=== PATIENT | male | born 1980 | race Caucasian/White ===

== ENCOUNTER 2021-04-13 14:56 | Emergency (ER) | payer OTHER ==
[~2021-04-13] VITALS: Ht 167.6 cm; Wt 63.5 kg
--- NOTE | 2021-04-13 15:04 | NUR ---
Pt to triage room for assessment.
[2021-04-13 15:05] VITALS: BP_SYST 154
--- NOTE | 2021-04-13 15:05 | NUR ---
Pt AAO and ambulatory reporting bilateral blisters on the bottom of feet X 3 days. Pt reports pain started 3 days ago. Pt stated that this has happened in the past and they usually dry out. Pt reports 10/10 pain currently. Pt has no prior medical history.
--- NOTE | 2021-04-13 15:15 | NUR ---
Dr. So to triage to assess.
--- NOTE | 2021-04-13 15:20 | NUR ---
Dr. So lanced blisters in triage. Pt tolerated well.
[2021-04-13] MEDS ORDERED: BACITRACIN 1 GM OINT TP ONE ×2 (15:24→15:30)
[2021-04-13] MEDS ORDERED: CEPH250C PO (15:25)
[2021-04-13] MEDS ORDERED: IBUP-1971 PO (15:25)
[2021-04-13 15:35] VITALS: BP_SYST 154
--- NOTE | 2021-04-13 15:35 | NUR ---
Patient given written and verbal discharge instructions and verbalizes understanding. Dr. Saray LANE MD discussed with patient the results and treatment provided. Patient in stable condition. ID arm band removed. Rx per MD. Patient educated on pain management and to follow up with PMD. Pain Scale 2/10. Opportunity for questions provided and answered. Medication side effect fact sheet provided.
== END 2021-04-13 15:35 | disposition home or self-care (01) ==
LOC: EDSEX 14:56 → SED 14:56
DX: S90.821A Blister (nonthermal), right foot, initial encounter (principal); S90.822A Blister (nonthermal), left foot, initial encounter; X58.XXXA Exposure to other specified factors, initial encounter; Y93.9 Activity, unspecified; Y92.89 Other specified places as the place of occurrence of the external cause; Y99.8 Other external cause status
CPT/HCPCS: 99283